=== PATIENT | male | born 1965 | race African-American/Black ===

== ENCOUNTER 2022-08-02 12:03 | Emergency (ER) | payer MEDICAID ==
[~2022-08-02] VITALS: Ht 177.8 cm; Wt 74.0 kg
[2022-08-02 13:18] VITALS: BP 147/99
== END 2022-08-02 21:34 | disposition left against medical advice (07) ==
LOC: ER 12:15
DX: Z53.21 Procedure and treatment not carried out due to patient leaving prior to being seen by health care provider (principal); R05.3 Chronic cough
CPT/HCPCS: 99281